=== PATIENT | female | born 1975 | race Caucasian/White ===

== ENCOUNTER 2025-06-15 19:27 | Emergency (ER) | payer OTHER, SELFPAY ==
--- NOTE | 2025-06-15 | ECG_ITS ---
Test Reason : SEIZURE Blood Pressure : */* mmHG Vent. Rate : 98 BPM Atrial Rate : 98 BPM P-R Int : 162 ms QRS Dur : 82 ms QT Int : 372 ms P-R-T Axes : 61 76 24 degrees QTcB Int : 474 ms Normal sinus rhythm Normal ECG No previous ECGs available Referred By: Generic ED Physician Electronically Signed By: Rafat Martinez
--- NOTE | ~2025-06-15 | CT_ITS ---
CLINICAL HISTORY: head injury, new sz CT head without contrast Comparison: None provided Findings: BRAIN: No acute infarct, hemorrhage, or mass effect. No abnormal atrophy. CSF SPACES: No hydrocephalus or effacement of basal cisterns. SKULL: No calvarial fracture. SINUSES: Mild ethmoid sinus mucosal thickening. ORBITS: Limited views are unremarkable. OTHER: Left frontal scalp subcutaneous cyst, may represent an epidermal inclusion cyst. IMPRESSION: 1. No acute intracranial findings. This document has been electronically signed by: Kerrie Del Cid MD on 06/15/2025 23:06:26
[2025-06-15 19:35] VITALS: BP 104/70; BP 112/81; PULSE 110; PULSE 93; RESP 20; TEMP 36.6; O2SAT 100; BMI 32.3
--- NOTE | 2025-06-15 19:35 | PC.NURSE ---
late entry- [place] [employer], a&ox4, respirations even and unlabored. pt reports she was at a [employer] , when she states she had one etoh drink and smoke weed. per ems, bystanders saw pt fall to ground and shake with eyes rolled, when ems got there pt appeared to still have seizure, 2mg of versed was given, pt stopped seizing. on arrival, pt offers no complaints, vss. seizure precautions in place. pt denies seizure hx
[2025-06-15 19:57] LABS: MANUAL DIFF FLAG NO
[2025-06-15 20:02] LABS: Hematocrit 36.3 % (37.0-47.0); Hemoglobin 13.2 g/dl (12.0-16.0); Imm Gran Abs Auto 0.07 X10*3/uL (0.00-0.03); Imm Gran Pct Auto 0.7 % (0.0-0.4); Lymphocytes Absolute Auto 2.2 X10*3/uL (1.2-4.9); Mean Corpuscular HGB Conc 36.4 g/dl (31.0-35.0); Mean Corpuscular Hemoglobin 32.8 pg (27.0-33.0); Mean Corpuscular Volume 90.3 fL (80.0-98.0); NRBC Abs Auto 0.000 X10*3/uL (0.0-0.012); NRBC Pct Auto 0.0 /100WBC (0.0-0.2); Platelet Count 390 X10*3/uL (160-400); Red Blood Count 4.02 X10*6/uL (4.20-5.50); White Blood Count 10.7 X10*3/uL (4.8-10.8)
[2025-06-15 20:14] LABS: Alanine Aminotransferase 13 U/L (0-31); Albumin Level 4.1 g/dL (3.5-5.0); Alkaline Phosphatase 74 U/L (39-117); Anion Gap 11 (12-20); Aspartate Amino Transferase 25 U/L (5-31); Blood Urea Nitrogen 15 mg/dL (9-16); Calcium 9.2 mg/dL (8.4-10.2); Carbon Dioxide 22 mmol/L (22-29); Chloride 110 mmol/L (96-108); Creatinine Clr Calc Pharmacy 68.9; Estimated Glomerular Filt Rate > 60; Lipase 18 U/L (8-78); Potassium 3.3 mmol/L (3.3-5.1); Sodium 140 mmol/L (135-145); Total Protein 6.6 g/dL (6.5-8.0)
[2025-06-15 20:26] LABS: Troponin-I High Sensitivity < 2.7 ng/L (<3.5-17.0)
--- OUTSIDE RECORDS SUMMARY | 2025-06-15 20:40 | XMS_ITS | Encounter Summary ---
Author Organization [employer] [facility] Address [address] [place] [address] Care Team Providers Care Storeroom Keeper Name Role Phone Marita Dean MD Primary Care Provider [phone] Reason for Visit * Reason Comments E-prescribe Rx Request Encounter Details Date Type Department Care Team Description 11/26/2023 Refill Bariatric Surgery - [place] [address] [facility] [address] [place] [address] Alba Morgan MD [address] [facility] [address] [place] [address] E-prescribe Rx Request Social History Tobacco Use Types Packs/Day Years Used Date Smoking Tobacco: Former Cigarettes 1 13 Q uit: 03/24/2008 Passive Smoke Exposure: Never Smokeless Tobacco: Never Comments:Quit 2019 Alcohol Use Standard Drinks/Week Comments Yes 0 (1 standard drink = 0.6 oz pur e alcohol) rarely Sex Assigned at Date Recorded Not on file Job Start Date Occupation Industry Not on file Not on file Not on file documented as of this encounter Plan of Treatment Not on file documented as of this encounter Visit Diagnoses Not on filedocumented in this encounter Care Teams Storeroom Keeper Relationship Specialty Start Date End Date Marita Dean MD [address] [place] [address] [id number] PCP - General Internal Medicine 03/18/23 documented as of this encounter
--- OUTSIDE RECORDS SUMMARY | 2025-06-15 20:40 | XMS_ITS ---
Author Name [facility] Organization Unknown Care Team Organization Name Specialty Phone Email Start Date End [facility] Blanca Terrazas Primary Care 07/28/2022 4
--- OUTSIDE RECORDS SUMMARY | 2025-06-15 20:40 | XMS_ITS | Encounter Summary ---
Author Organization [facility] Address [address] [place] [address] Care Team Providers Care Mortgage Specialist Name Role Phone Marita Dean MD Primary Care Provider [phone] Encounter Details Date Type Department Care Team Description 03/19/2024 Refill Bariatric Surgery - [place] [address] [facility] [address] [place] [address] Kate Kwan MD [address] [place] [address] [address] [place] [address] Social History Tobacco Use Types Packs/Day Years Used Date Smoking Tobacco: Former Cigarettes 1 13 Q uit: 03/24/2008 Passive Smoke Exposure: Never Smokeless Tobacco: Never Comments:Quit 2020 Alcohol Use Standard Drinks/Week Comments Yes 0 (1 standard drink = 0.6 oz pur e alcohol) rarely Sex Assigned at Date Recorded Not on file Job Start Date Occupation Industry Not on file Not on file Not on file documented as of this encounter Plan of Treatment Not on file documented as of this encounter Visit Diagnoses Diagnosis Class 2 obesity due to excess calories without serious comorbidity with body mass index (BMI) of 38.0 to 38.9 in adult documented in this encounter Care Teams Mortgage Specialist Relationship Specialty Start Date End Date Marita Dean MD [address] [place] [address] [phone] PCP - General Internal Medicine 03/18/23 documented as of this encounter
--- OUTSIDE RECORDS SUMMARY | 2025-06-15 20:40 | XMS_ITS | Encounter Summary ---
Author Organization [facility] Address [address] [place] [address] Care Team Providers Care Water Taxi Driver Name Role Phone Cheryl Mendoza MD Primary Care Provider Blanca Aldridge MD Primary Care Provider [phone] Marita Dean MD Primary Care Provider [phone] Reason for Visit * Reason Onset Date Comments Abdominal Pain 10/10/2018 Encounter Details Date Type Department Care Team Description 10/10/2018 Telephone Medicine/Pediatrics - [address] [phone] Cheryl Mendoza MD Abdominal Pain Social History Tobacco Use Types Packs/Day Years Used Date Smoking Tobacco: Every Day Cigarettes 1 13 Last attempted to quit: 03/24/2008 Smokeless Tobacco: Never Alcohol Use Standard Drinks/Week Comments Yes 0 (1 standard drink = 0.6 oz pur e alcohol) rarely Sex Assigned at Date Recorded Not on file Job Start Date Occupation Industry Not on file Not on file Not on file documented as of this encounter Miscellaneous Notes * Telephone Encounter - Taylor Duque L.P.N. - 10/10/2018 11:26 AM EST Pt states she has been having stabbing pain in her abd Woke her up in her sleep No other sx Pain comes and goes in waves she nancy from the pain To go er * Telephone Encounter - Gely Loza - 10/10/2018 11:21 AM EST Symptoms patient is presenting: lower abdomen pain, feels like a knife stabbing her, woke her out of a sound sleep. If pain or injury related was it due to an accident at work or from a motor vehicle accident? NO If yes, gather 3rd green party insurance information Date of accident/Injury: How long has patient had these symptoms?: this wknd. PCP: Cheryl Huynh Payor: [employer] [facility] SPO / Plan: [employer] $25 ENUMCLAW 1 / Product Type: HMO [id number] documented in this encounter Plan of Treatment Not on file documented as of this encounter Visit Diagnoses Not on filedocumented in this encounter Care Teams Water Taxi Driver Relationship Specialty Start Date End Date Cheryl Mendoza MD PCP - General Internal Medicine 07/19/15 03/05/22 Blanca Terrazas MD [address] [place] [phone] PCP - General Internal Medicine 03/06/22 03/17/23 Marita Dean MD [address] [place] [phone] PCP - General Internal Medicine 03/18/23 documented as of this encounter
--- OUTSIDE RECORDS SUMMARY | 2025-06-15 20:40 | XMS_ITS | Encounter Summary ---
Author Organization [facility] Address [address] [place] [address] Care Team Providers Care Intercell Connector Placer Name Role Phone Shannan Montes MD Primary Care Provider Unavailable Dianna Cuadra MD Primary Care Provider Shannan Montes De Oca MD Primary Care Provider Unavailable Renan Suárez MD Primary Care Provider Unavailab Yusuf Arceo MD Primary Care Provider Unavail able Cheryl Mendoza MD Primary Care Provider Unavaila Blanca Farah MD Primary Care Provider [phone] Marita Dean MD Primary Care Provider [phone] Encounter Details Date Type Department Care Team Description 12/02/2007 [facility] Medical Records [address] [place] [address] Social History Tobacco Use Types Packs/Day Years [...] on filedocumented in this encounter Care Teams Intercell Connector Placer Relationship Specialty Start Date End Date Shannan Montes MD PCP - General 07/01/0602/14 Dianna Cuadra MD PCP - General Internal Medicine 02/16/12 11/24/12 Shannan Montes MD PCP - General Internal Medicine 11/25/12 Renan Suárez MD PCP - General Internal Medicine 05/11/14 09/19/14 Yusuf Suárez MD PCP - General Internal Medicine 06/20/15 07/18/15 Cheryl Mendoza MD PCP - General Internal Medicine 07/19/15 03/05/22 Blanca Terrazas MD [address] [place] [phone] PCP - General Internal Medicine 03/06/22 03/17/23 Marita Dean MD [address] [place] [id number] PCP - General Internal Medicine 03/18/23 documented as of this encounter
--- OUTSIDE RECORDS SUMMARY | 2025-06-15 20:40 | XMS_ITS | Clinical Summary ---
Author Organization [address] [facility] Address [address] [place] [address] Phone Care Team Providers Care Corporate Administrator Name Role Phone Marita Dean MD Primary Care Provider [phone] Allergies Active Allergy Reactions Criticality Noted Date Comments Codeine Nausea And Vomiting High 09/23/2006 Hives too Medications nystatin (MYCOSTATIN) 100,000 unit/gram powder Apply to affected area 3 times a day until symptoms resolve 4 Active cholecalciferol (VITAMIN D-3) 5,000 Units tablet TAKE 1 TABLET BY MOUTH ONCE A WEEK FOR 12 DOSES 3 Active cyclobenzaprine (FLEXERIL) 5 mg tablet Take by mouth 3 (three) times a day if needed for muscle spasms (for up to 15 days). Active ibuprofen (ADVIL,MOTRIN) 600 mg tablet Take 1 tablet (600 mg total) by mouth every 6 (six) hours if needed for mild pain or moderate pain. Active albuterol HFA (PROAIR HFA ; PROVENTIL HFA ; VENTOLIN HFA) 90 mcg/actuation inhaler Inhale 2 puffs by mouth every 6 (six) hours if needed for wheezing or shortness of breath. 6.7 g 5 Active phentermine (ADIPEX-P) 37.5 mg tabletIndication s:Class 1 obesity due to excess calories with body mass index (BMI) of 30.0 to 30.9 in adult, unspecified whether serious comorbidity present Take 1 tablet (37.5 mg total) by mouth 1 (one) time each day before breakfast. Max Daily Amount: 37.5 mg 30 each 2 5 07/23/20 25 Active topiramate 200 mg capsule,extended release 24hrIndications: Class 1 obesity due to excess calories with body mass index (BMI) of 30.0 to 30.9 in adult, unspecified whether serious comorbidity present Take 200 mg by mouth at bedtime. 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 9) with comorbidity (CMS/HCC V24, CMS/HCC V28) 06/08/2014 Cervical dysplasia 01/16/2009 Encounters Date Type Department Care Team Description 04/24/2025 8:15 AM EDT Office Visit Bariatric Surgery - [address] [place] [address] Kate Kwan MD Class 1 obesity due to excess calories with body mass index (BMI) of 30.0 to 30.9 in adult, unspecified whether serious comorbidity present (Primary Dx); Class 1 obesity due to excess calories with body mass index (BMI) of 31.0 to 31.9 in adult, unspecified whether serious comorbidity present from Last 3 Months Surgical History Surgery Date Site/Laterality Comments SECTION PROCEDURE: HISTORICAL DELIVERY; COMMENT: x2 TUBAL LIGATION PROCEDURE: HISTORICAL TUBAL LIGATION Medical History Medical History Date Comments Cervical dysplasia 01/16/2009 DX:Cervical d ysplasia Polymorphic light eruption DX:Po lymorphic light eruption; COMMENT: 4 days of prednisone helps Tobacco use disorder DX:Tobacco use disorder Fatty liver DX:Fatty liver Liver cyst DX:Liver cyst Renal cyst DX:Renal cyst Family History Medical History Relation Name Comments Heart attack Father drug-incuded [place] No Known Problems Maternal Grandfather Heart attack Maternal Grandmother HTN, ca taract COPD Mother Lung cancer Mother Breast cancer Other x2 pat and mat maternal cou sin No Known Problems Paternal Grandfather No Known Problems Paternal Grandmother Ovarian cancer Neg Hx Uterine cancer Neg Hx Relation Name Status Comments Father Maternal Grandfather Maternal Grandmother Mother Alive Other x2 pat and mat Other Paternal Grandfather Paternal Grandmother Social History Tobacco Use Types Packs/Day Years Used Date Smoking Tobacco: Former Cigarettes Q uit: 03/24/2008 Smokeless Tobacco: Never Alcohol Use Standard Drinks/Week Comments Yes 0 (1 standard drink = 0.6 oz pur e alcohol) Comments Unknown Sex and Gender Information Value Date Recorded Sex Assigned at Not on file Legal Sex Female 5:52 PM EST Gender Identity Not on file Sexual Orientation Not on file Obstetrics History Last Filed Vital Signs Vital Sign Reading Time Taken Comments Blood Pressure 122/77 04/24/2025 8:12 AM EDT Pulse 89 04/24/2025 8:12 AM EDT Temperature 36.6 C (97.8 F) 04/24/2025 8:12 AM EDT Respiratory Rate 16 02/05/2025 11:04 AM EDT Oxygen Saturation 98% 02/05/2025 11:04 AM EDT Inhaled Oxygen Concentration - - Weight 77.1 kg (170 lb) 04/24/2025 8:12 AM EDT Height 160 cm (5' 3 ) 04/24/2025 8:12 AM EDT Body Mass Index 30.11 04/24/2025 8:12 AM EDT Plan of Treatment Upcoming Encounters Date Type Department Care Team (Late st Contact Info) Description 07/31/2025 8:10 AM EST Appointment Radiology Department [address] [address] 10/11/2025 8:15 AM EST Office Visit Bariatric Surgery - [address] [place] [address] Kate Kwan MD [address] [place] [phone] Health Maintenance Due Date Last Done Comments Hepatitis B Vaccines (1 of 3 - 19+ 3-dose series) 1996 Pneumococcal Vaccine: Pediatrics (0 to 5 Years) and At-Risk Patients (6 to 49 Years) (2 of 2 - PCV) 06/25/2017 06/25/2016 Cholesterol Screening (Lipid Panel) 08/29/2022 Colorectal Cancer Screening: Colonoscopy 08/29/2022 HIV Screening 08/29/2022 Hepatitis C Screening 08/29/2022 Social Influencers of Health Screening 08/29/2022 Depression Screening 09/20/2024 COVID-19 Vaccine ( season) 2025 09/26/2021, 10/25/2020, 10/04/2020 Influenza Vaccine (#1) 2025 , 06/03/2023, 08/07/2022, Additional history exists Breast Cancer Screening 07/07/2026 07/07/20 24, 07/07/2024, 03/12/2023, Additional history exists Cervical Cancer Screening: Pap Smear 11/29/2026 11/30/2023, 10/13/2018 DTaP,Tdap,and Td Vaccines (3 - Td or Tdap) 09/24/2033 09/24/2023, 05/14/2010 RSV Immunization Adult Patients (1 - 1-dose 75+ series) 2052 HIB Vaccines Aged Out No longer eligi ble based on patient's age to complete this topic HPV Vaccines Aged Out No longer eligi ble based on patient's age to complete this topic Hepatitis A Vaccines Aged Out No long er eligible based on patient's age to complete this topic IPV Vaccines Aged Out No longer eligi ble based on patient's age to complete this topic MMR Vaccines Aged Out No longer eligi ble based on patient's age to complete this topic Meningococcal ACWY Vaccine Aged Out N o longer eligible based on patient's age to complete this topic Meningococcal B Vaccine Aged Out No l onger eligible based on patient's age to complete this topic RSV Immunization Patients Under 20 months Aged Out No longer eligible based on patient's age to complete this topic Varicella Vaccines Aged Out No longer eligible based on patient's age to complete this topic Procedures Procedure Name Priority Date/Time Associated Diagnosis Comments SCREENING MAMMOGRAPHY BI 2-VIEW BREAST INC CAD Routine 07/07/2024 11:47 AM EDT Encounter for screening mammogram for malignant neoplasm of breast PAP SMEAR Routine 11/30/2023 from Last 3 Months or Most Recently Relevant to Health Maintenance Results * SCREENING MAMMOGRAPHY BI 2-VIEW BREAST INC CAD (07/07/2024 11:47 AM EDT) Anatomical Region Laterality Modality Radiographic Julita ging 03/12/2023 7:51 AM EDT Narrative 07/07/2024 12:42 PM EDT This is a summary report. The complete report is available in the patient's medical record. If you cannot access the medical record, please contact the sending organization for a detailed fax or copy. Full field digital screening tomosynthesis mammography, reviewed with CAD and compared to previous. The breasts are composed of fatty and fibroglandular tissue. No suspicious mass, architectural distortion or suspicious calcifications are identified. IMPRESSION: : No mammographic evidence of malignancy. BIRADS 1-Negative; N. Breast density: The breasts have scattered areas of fibroglandular density. 5 year breast cancer risk assessment 1.0 % Lifetime breast cancer risk assessment 11.4 % Breast cancer risk category Low (<15%) Location: [facility], [address] [place] [address], [phone], [phone] Procedure Note Fran Brewer MD - 07/18/2024 This is a summary report. The complete report is available in thepatient's medical record. If you cannot access the medical record, pleasecontact the sending organization for a detailed fax or copy. Full field digital screening tomosynthesis mammography, reviewed with CADand compared to previous. The breasts are composed of fatty andfibroglandular tissue. No suspicious mass, architectural distortion orsuspicious calcifications are identified. IMPRESSION: : No mammographic evidence of malignancy. BIRADS 1-Negative; N. Breast density: The breasts have scattered areas of fibroglandulardensity. 5 year breast cancer risk assessment 1.0 % Lifetime breast cancer risk assessment 11.4 % Breast cancer risk category Low (<15%) Location: [facility], [address] [place], [place] [address] [place], [address], [phone] us Blanca Terrazas MD IMG XR PROCEDURES Final Result * Pap smear (11/30/2023) 11/30/2023 Narrative HISTORICAL TESTING LAB RESULTING AGENCY - 12/10/2023 3:40 PM EDT [id number] THINPREP PAP, IMAGED: NEGATIVE FOR SQUAMOUS INTRAEPITHELIAL LESION AND MALIGNANCY . REACTIVE CELLULAR CHANGES. SHIFT IN JNENIFER, SUGGESTIVE OF BACTERIAL VAGINOSIS. ABY MARTINEZ M.D. , PATHOLOGIST (CASE ELECTRONICALLY SIGNED 12 10 2023) RESULT OF APTIMA HIGH RISK HPV ASSAY: HIGH RISK HPV: NEGATIVE (SEROTYPES 16,18,31,33,35,39,45,51,52,56,58,59,66,68) COMPLETED ON 2023-12-02 ADEQUACY: SATISFACTORY ENDOCERVICAL/TRANSFORMATION ZONE COMPONENT PRESENT. SOURCE: THINPREP PAP HPV ANY DX: REFLEX 16 AND 18, CERVICAL, IMAGED CLINICAL INFORMATION: HPV ANY DIAGNOSIS. PAP HX NEGATIVE, [Z01.419] us Naima Monterroso CNM LAB CYTOLOGY ORDERABLES Final Result HISTORICAL TESTING LAB RESULTING AGENCY from Last 3 Months or Most Recently Relevant to Health Maintenance Insurance * Guarantor: Aby Flood Account Type Relation to Patient Date of Phone Billing Address Personal/Family Self 1975 [phone] (Work) [address] [place] [address] [employer] Care Teams Corporate Administrator Relationship Specialty Start Date End Date Marita Dean MD [address] [place] [address] PCP - General Internal Medicine 09/06/24
--- OUTSIDE RECORDS SUMMARY | 2025-06-15 20:40 | XMS_ITS | Clinical Summary ---
Author Organization [facility] Address [address] [place] [address] Care Team Providers Care Supervisor Sunglasses Name Role Phone Marita Dean MD Primary Care Provider [phone] Allergies Active Allergy Reactions Severity Noted Date Comments Codeine Nausea and Vomiting High 09/23/2006 Hives too Medications Medication Sig Dispensed Refills Start Date End Date Status D-5000 125 MCG (5000 UT) Tab TAKE 1 TABLET BY MOUTH ONCE A WEEK FOR 12 DOSES 0 06/29/2023 Active ibuprofen (ADVIL,MOTRIN) 600 MG tablet Take 1 Tablet by mouth every 6 hours as needed for Pain. 60 Tablet 1 04/26/2024 Active cyclobenzaprine (FLEXERIL) 5 MG tablet Take 1 Tablet by mouth 3 times daily as needed for Muscle spasms for up to 15 days. 45 Tablet 0 04/26/2024 Active phentermine (ADIPEX-P) 37.5 MG tabletIndications:Cla ss 1 obesity due to excess calories with body mass index (BMI) of 31.0 to 31.9 in adult, unspecified whether serious comorbidity present Take 1 Tablet by mouth every morning (before breakfast) for 30 days. 30 Tablet 0 06/20/2024 Active topiramate (TOPAMAX) 100 MG tabletIndications:Cla ss 1 obesity due to excess calories with body mass index (BMI) of 31.0 to 31.9 in adult, unspecified whether serious comorbidity present Take 1 Tablet by mouth daily for 90 days. 90 Tablet 0 06/20/2024 Active Active Problems Problem Noted Date Cyst of left kidney 11/07/2018 Overview: Noted on CT and confirmed on U/S 10/2018 Hepatic steatosis 10/12/2018 Overview: U/S 10/2018 Liver cyst 10/12/2018 Overview: Noted on CT and confirmed on US 10/2018 Severe obesity (BMI 35.0-39.9) with nicki rbidity 06/08/2014 Cervical dysplasia 01/16/2009 Polymorphic light eruption Tobacco use disorder Resolved Problems Problem Noted Date Resolved Date Previous section 01/16/20092013 Immunizations Name Administration Dates Next Due COVID-19 (Pfizer) 09/26/2021,10/25/2020,10/04/19 Hxatthsso-W-Atwkb-Positive + 06/09/2018 Influenza (> 6 Months) 08/01/2020,2018,06/29/2019,06/29,06/29/2018,06/10/2017,06/25/2016 ,06/21/2015,06/21/2015,06/05/2009,05/21 Influenza (>6 Months) Split Preservative Free 06/10/2017,06/25/2016 Influenza Vaccine-preservati ve Free-quadrivalent 4 Years 06/24/2021 Influenza Vaccine-quadrivale nt 4 Years Plus 06/03/2023,08/07/2022 Zktqqry-Bufxb-Npbiasol + 06/09/2018 Fbyah-Jlqhk-Lzaikudc + 06/09/2018 PPD-Negative Response(External) 01/18/2019 PPD-RBMG 01/16/2019 Pneumoccoccal(Adult) Polysac charide PPSV23 06/25/2016,06/25/2016 Dayqqqz-Ednpu-Ihditnda + 06/09/2018 Tdap 09/24/2023,05/14/2010 Varicella Titre-Positive + 06/09/2018 Family History Medical History Relation Name Comments [place] Father drug-incuded [place] No Known Problems Maternal Grandfather SD Maternal Grandmother HTN, ca taract CA Lung Mother COPD Mother CA Breast Other x2 pat and mat maternal cous in No Known Problems Paternal Grandfather No Known Problems Paternal Grandmother CA Ovarian Negative Hx Uterine Cancer Negative Hx Relation Name Status Comments Father Maternal Grandfather Maternal Grandmother Mother Alive Other x2 pat and mat Other Paternal Grandfather Paternal Grandmother Social History Tobacco Use Types Packs/Day Years Used Date Smoking Tobacco: Former Cigarettes 1 13 Q uit: 03/24/2008 Passive Smoke Exposure: Never Smokeless Tobacco: Never Tobacco Cessation:Counseling Given: Not Answered Comments:Quit 2019 Alcohol Use Standard Drinks/Week Comments Yes 0 (1 standard drink = 0.6 oz pur e alcohol) rarely Sex Assigned at Date Recorded Not on file Job Start Date Occupation Industry Not on file Not on file Not on file Last Filed Vital Signs Vital Sign Reading Time Taken Comments Blood Pressure 137/85 06/20/2024 8:04 AM EDT Pulse 81 06/20/2024 8:04 AM EDT Temperature 36.8 C (98.2 F) 06/20/2024 8:04 AM EDT Respiratory Rate 16 04/26/2024 8:03 AM EDT Oxygen Saturation 97% 07/12/2018 10:58 AM EDT Inhaled Oxygen Concentration - - Weight 85.7 kg (189 lb) 06/20/2024 8:04 AM EDT Height 165.1 cm (5' 5 ) 06/20/2024 8:04 AM EDT Body Mass Index 31.45 06/20/2024 8:04 AM EDT Plan of Treatment Health Maintenance Due Date Last Done Comments BMI CHECK/ADVISE 09/20/2024 06/20/2024, , 12/16/2023, Additional history exists Covid-19 Vaccine (2022- 4 season) 2025 09/26/2021, 10/25/2020, 10/04/2020 INFLUENZA (#1) 2025 06/03/2023, 07/21, 06/24/2021, Additional history exists MAMMOGRAM 07/07/2025 07/07/2024, 02/19, 03/10/2022, Additional history exists BASELINE HEALTH EXAM 40-64 09/24/202509/24, 01/12/2019, 06/08/2014 CERVICAL CANCER SCREENING 11/29/20262023, 10/13/2018, 04/24/2013, Additional history exists CHOLESTEROL SCREENING 05/21/2028 05/21/2023, 014 DTAP/TDAP/TD (3 - Td or Tdap) 09/24/2033 09/24/2023, 05/14/2010 PNEUMOCOCCAL VACCINE FOR HIG H RISK PATIENTS (#1) 2042 06/25/2016, 06/25/2016 Care Teams Supervisor Sunglasses Relationship Specialty Start Date End Date Marita Dean MD [address] [place] [phone] PCP - General Internal Medicine 03/18/23
--- NOTE | 2025-06-15 22:20 | ED.SEIZURE ---
HPI - Seizure General Chief Complaint: Seizure Stated Complaint: seizure, no sz hx Time Seen by Provider: 06/15/25 21:08 History of Present Illness HPI Narrative: Patient is a 49-year-old female was at a [employer] she had her own water that she brought with her. Had a little bit of the water had a little bit of alcohol then had some marijuana. Per her cousin patient had a seizure-like activity was very sleepy afterward. Was very nauseous. Did not bit her tongue. Did not have any urinary incontinence. Patient was then gently let down on the ground. Gradually recover. On arrival patient's symptom has resolved. Denies any pain. Denies any recreational drug other than marijuana. Patient never had a seizure in the past. No chest pain or diaphoresis. Patient claims nothing happened at the [employer]. She was in the visual field of her cousin the entire time. Related Data Allergies Allergy/AdvReac Type Severity Reaction Status Date / Time acetaminophen (From Vicodin) Allergy Rash Verified 06/15/25 19:39 hydrocodone (From Vicodin) Allergy Rash Verified 06/15/25 19:39 Review of Systems Review of Systems: No chest pain or diaphoresis no fever Yes all other systems are reviewed and are negative [facility] Past Medical History Attestation statement: The following information was validated with the patient. Social History Social History Smoked in Last 30 Days: No Use of substances other than those prescribed or required for medical reasons: No Advance Directives: No Advance Directives Information Provided: No Do you have a plan to hurt others: No Plan Physical Exam Exam: Exam: Appearance: Alert. Oriented X3. No acute distress. Eyes: Pupils equal, round and reactive to light. ENT: Pharynx normal. Neck: Normal inspection. Neck supple. No lymph nodes noted. No crepitus CVS: Normal heart rate and rhythm. Pulses normal. Normal S1 and S2 Respiratory: No respiratory distress. Breath sounds normal. No Wheezing. No rales Abdomen: Soft and nontender. No rigidity. No distention. good BS x4 Skin: Skin warm and dry. Normal skin color. Normal skin turgor. Extremities: No lower extremity edema. Neurovascular intact to all extremities. No Lacerations. No Rash Neuro: Oriented X 3. No motor deficit. No sensory deficit. Moving all extermities. No slurred speech Vital Signs: Vital Signs: Last Vital Signs Temp 97.9 F 06/15/25 19:35 Pulse 93 06/15/25 19:35 Resp 20 06/15/25 19:35 BP 112/81 06/15/25 19:35 Pulse Ox 100 06/15/25 19:35 O2 Del Method Room Air 06/15/25 19:35 BMI result Body Mass Index 32.3 Medical Decision Making Medical Decision Making [facility] [place] Narrative: Well-appearing no acute distress. No signs of trauma. Electrolytes was sent there were grossly normal. CT scan of the head was being done. No history of seizures in the past my interpretation of patient's EKG showed a sinus rhythm heart rate is 100 PA QRS QTC normal no acute ST segment elevation. Likely first-time seizure my interpretation patient's CAT scan was grossly negative. Patient is well-appearing neurologically intact electrolytes are normal. I reviewed radiology's reading of the CT head. Will have patient follow seizure precautions. No driving no activities that put her in danger if she had a seizure at that time no swimming. Patient will need follow-up with Neurology on an outpatient basis given it is the 1st seizure will not start patient on anticonvulsants. Have patient follow-up with neurology outpatient. Differential Diagnosis Differential Diagnoses: The differential diagnosis associated with the presentation includes Admission/Observation Consideration of admission/observation: Escalation of care including admission/observation considered Lab Data [facility] [place] Lab Attestation statement: I reviewed the patient's lab results. 06/15/25 19:52 06/15/25 19:52 Labs: Lab Results 06/15/25 Range/Units 19:52 WBC 10.7 (4.8-10.8) X10*3/uL RBC 4.02 L (4.20-5.50) X10*6/uL Hgb 13.2 (12.0-16.0) g/dl Hct 36.3 L (37.0-47.0) % MCV 90.3 (80.0-98.0) fL MCH 32.8 (27.0-33.0) pg MCHC 36.4 H (31.0-35.0) g/dl RDW 12.2 (11.0-16.0) % Plt Count 390 (160-400) X10*3/uL MPV 8.3 L (9.4-12.3) fL Immature Gran % (Auto) 0.7 H (0.0-0.4) % Neut % (Auto) 72.7 (45-73) % Lymph % (Auto) 20.6 (20-40) % Patrick % (Auto) 4.3 (2-11) % Eos % (Auto) 1.2 (0-4) % Baso % (Auto) 0.5 (0-2) % Lymph # (Auto) 2.2 (1.2-4.9) X10*3/uL Patrick # (Auto) 0.5 (0.1-1.2) X10*3/uL Eos # (Auto) 0.1 (0.0-0.4) X10*3/uL Baso # (Auto) 0.1 (0.0-0.2) X10*3/uL Abs Immat Gran (auto) 0.07 H (0.00-0.03) X10*3/uL Absolute Neuts (auto) 7.8 (2.0-8.3) x10*3/uL Absolute Nucleated RBC 0.000 (0.0-0.012) X10*3/uL Nucleated RBC % (auto) 0.0 (0.0-0.2) /100WBC Sodium 140 (135-145) mmol/L Potassium 3.3 (3.3-5.1) mmol/L Chloride 110 H (96-108) mmol/L Carbon Dioxide 22 (22-29) mmol/L Anion Gap 11 L (12-20) BUN 15 (9-16) mg/dL Creatinine 0.99 (0.5-1.4) mg/dL Estim Creat Clear Calc 68.9 Estimated GFR > 60 Random Glucose 126 H (60-115) mg/dL Calcium 9.2 (8.4-10.2) mg/dL Total Bilirubin 0.5 (0.0-1.0) mg/dL AST 25 (5-31) U/L ALT 13 (0-31) U/L Alkaline Phosphatase 74 (39-117) U/L Troponin I High Sens < 2.7 (<3.5-17.0) ng/L Total Protein 6.6 (6.5-8.0) g/dL Albumin 4.1 (3.5-5.0) g/dL Lipase 18 (8-78) U/L Ethyl Alcohol < 10 mg/dL Independent Interpretation I performed an independent interpretation of an: EKG (Sinus heart rate is 100 PA QRS QTC normal no acute ST segment elevation) and CT Scan (CT head negative for bleed) Radiology Impression Discussion of test interpretation with radiology: I have reviewed the radiologist's reading. Independent Historian Clinical information obtained from an independent historian. History obtained from or confirmed by: Spouse Prescription Management No need for pain medication. No need for seizure meds for now Social Determinants Patient?s care significantly limited by Social Determinants of Health including: Problems related to primary support group Discharge Plan Discharge Clinical Impression: Generalized seizure, New onset seizure Patient Disposition: Home, Self-Care Instructions: New-Onset Seizure in Adults (ED) Additional Instructions: No driving. No swimming. No activities that would put you in danger if you have a seizure that time Referrals: Robyn Fischer MD [Physician, Neurology] - 06/18/25 Print Language: [place]
[2025-06-15 23:21] VITALS: BP 124/77; PULSE 91; RESP 16; TEMP 37.2; O2SAT 98
== END 2025-06-15 23:38 | disposition home or self-care (01) ==
PROVIDERS: Emergency Provider Emergency Medicine Emergency Medical Services
DX: R56.9 Unspecified convulsions (principal); F10.90 Alcohol use, unspecified, uncomplicated; F12.90 Cannabis use, unspecified, uncomplicated; Y90.0 Blood alcohol level of less than 20 mg/100 ml
CPT/HCPCS: 36415; 70450; 80053; 80307; 83690; 84484; 85025; 93005; 99284

== ENCOUNTER → 2025-06-15 19:45 | Outpatient (BNV) | payer OTHER, SELFPAY | PROVIDERS: Emergency Provider Emergency Medicine Emergency Medical Services; Visit Provider Internal Medicine Cardiovascular Disease | DX: R56.9 Unspecified convulsions (principal) | CPT/HCPCS: 93010 ==

== ENCOUNTER → 2025-06-15 22:17 | Outpatient (BNV) | payer OTHER, SELFPAY | PROVIDERS: Emergency Provider Emergency Medicine Emergency Medical Services; Visit Provider Student in an Organized Health Care Education/Training Program | DX: R56.9 Unspecified convulsions (principal) | CPT/HCPCS: 70450 ==